=== PATIENT | female | born 1985 | race Caucasian/White ===

== ENCOUNTER 2016-10-26 18:19 | Emergency (ER) | payer MEDICAID ==
[~2016-10-26] VITALS: Ht 177.8 cm; Wt 77.1 kg
[2016-10-26 18:24] VITALS: BP 124/92; PULSE 107; RESP 16; TEMP 96; O2SAT 96
--- NOTE | 2016-10-26 18:27 | NUR ---
Patient to ER bed 5 to gown for evaluation. Side rails up. Report given to Erum GOLD.
--- NOTE | 2016-10-26 18:34 | NUR ---
Patient sitting in bed, stable condition, no distress noted. Patient states has had a cough with sore throat since yesterday. No cough noted at this time. No other complaints injuries per patient or noted.
--- NOTE | 2016-10-26 19:00 | NUR ---
MD Marrero at bedside examining pt
--- NOTE | 2016-10-26 19:05 | NUR ---
HR 89, oral temp 98.4, pt is N/A for sepsis
[2016-10-26] MEDS ORDERED: KETOROLAC TROMETHAMINE 60 MG/2 ML VIAL IM ONE (19:15)
[2016-10-26] MEDS ORDERED: DEXAMETHASONE SOD PHOSPHATE 10 MG/ML VIAL IM ONE (19:15)
[2016-10-26] MEDS ORDERED: DEXAMETHASONE SOD PHOSPHATE 4 MG/ML VIAL ONE (19:24)
[2016-10-26 19:45] VITALS: BP 120/76; PULSE 88; RESP 16; TEMP 98.4; O2SAT 96
--- NOTE | 2016-10-26 19:45 | NUR ---
Patient given written and verbal discharge instructions and verbalizes understanding. ER MD Marrero discussed with patient the results and treatment provided. Patient in stable condition. ID arm band removed. Rx of motrin and amoxicillin given. Patient educated on pain management and to follow up with PMD. Pain Scale 0/10. Opportunity for questions provided and answered.
== END 2016-10-26 19:41 | disposition home or self-care (01) ==
LOC: SED 18:19
DX: J03.90 Acute tonsillitis, unspecified (principal); R03.0 Elevated blood-pressure reading, without diagnosis of hypertension
CPT/HCPCS: 96372; 99284; J1100; J1885

== ENCOUNTER 2017-08-31 11:02 | Emergency (ER) | payer MEDICAID ==
[~2017-08-31] VITALS: Ht 177.8 cm; Wt 75.3 kg
[2017-08-31 11:17] VITALS: BP_SYST 124
[2017-08-31] MEDS ORDERED: NACL 0.9% 1,000 ML IV ONE (11:39)
[2017-08-31] MEDS ORDERED: ONDANSETRON HCL 4 MG/2 ML VIAL IVP ONE (11:45)
[2017-08-31] MEDS ORDERED: MAG HYDROX/AL HYDROX/SIMETH 30 ML, BELLADONNA ALKALOIDS/PHENOBARB 10 ML, LIDOCAINE VISC... PO ONE ×3 (11:45)
[2017-08-31 11:52] LABS: BILIRUBIN,URINE 1+ (NEGATIVE); BLOOD, URINE NEGATIVE (NEGATIVE); CLARITY/URINE SL HAZY (CLEAR); COLOR,URINE YELLOW (YELLOW); GLUCOSE,URINE NEGATIVE (NEGATIVE); KETONES,URINE 2+ (NEGATIVE); LEUKOCYTE ESTERASE ,URINE TRACE (NEGATIVE); NITRITE, URINE NEGATIVE (NEGATIVE); PH,URINE 5.5 (5.0-8.0); PROTEIN URINE 1+ (NEGATIVE)
[2017-08-31 11:59] LABS: BACTERIA,URINE FEW /HPF (None Seen); RBC,URINE 0-3 /HPF (0-3)
[2017-08-31 12:00] LABS: MUCUS,URINE 1+ /LPF (None Seen)
[2017-08-31 12:18] LABS: CALCIUM 8.3 mg/dL (8.4-11.0); CREATININE 0.88 mg/dL (0.55-1.30); POTASSIUM 3.3 mmol/L (3.5-5.1)
[2017-08-31 12:19] LABS: ALBUMIN 3.7 g/dL (3.4-4.8); TOTAL BILIRUBIN 0.4 mg/dL (0.0-1.0)
[2017-08-31 12:20] LABS: BASOPHILS % (AUTO) 0.4 % (0.0-2.0); EOSINOPHILS % (AUTO) 0.6 % (0.0-4.0); HEMATOCRIT 43.3 % (36-48); HEMOGLOBIN 14.9 g/dL (12.0-16.0); LYMPHOCYTES # (AUTO) 0.8 K/uL (1.0-5.5); LYMPHOCYTES % (AUTO) 21.8 % (20.5-51.5); MEAN CORPUSCULAR HEMOGLOBIN 29 pg (27-31); MEAN CORPUSCULAR HGB CONC 34 % (32-36); MEAN CORPUSCULAR VOLUME 85 fL (79.0-98.0); MONOCYTES # (AUTO) 0.5 K/uL (0.0-1.0); MONOCYTES % (AUTO) 11.7 % (1.7-9.3); NEUTROPHILS # (AUTO) 2.5 K/uL (1.8-7.7); NEUTROPHILS % (AUTO) 65.5 % (40.0-70.0); PLATELET COUNT (AUTO) 242 K/uL (130-430); RED CELL DISTRIBUTION WIDTH 12.4 % (9.0-15.0); WHITE BLOOD COUNT (AUTO) 3.9 K/uL (4.8-10.8)
[2017-08-31 13:25] VITALS: BP_SYST 138
== END 2017-08-31 13:25 | disposition home or self-care (01) ==
LOC: SED 11:02
DX: K21.9 Gastro-esophageal reflux disease without esophagitis (principal)
CPT/HCPCS: 36415; 80053; 81000; 81025; 82150; 83690; 85025; 87086; 96361; 96374; 99284; J2001; J2405; J7030